=== PATIENT | male | born 1945 | race Caucasian/White ===

== ENCOUNTER 2018-07-17 13:55 | Emergency (ER) | payer OTHER, BC ==
[2018-07-17 14:02] VITALS: PULSE 101; TEMP 98; BMI 28.1
--- NOTE | 2018-07-17 14:02 | PDOC ---
History of Present Illness - History of Present Illness Initial Comments: 07/17/18 14:40 The patient is a 73 year old male with a significant past medical history of HLD and depression who presents to the ER with bilateral lower back pain s/p a fall on 07/07. Patient states he was salsa dancing when he accidentally slipped and fell onto his buttock and his partner fell on top. Patient reports that it feels like spasms and is a 2/10 in severity when sitting down and 9/10 with lying down. Patient denies any difficulty walking. Patient noticed mild relief with hot showers. Patient is also complaining of constipation since the fall and states his stool is hard. The patient denies chest pain, shortness of breath, headache, lightheadedness, and dizziness. Denies fever, chills, nausea, vomit, diarrhea. Denies dysuria, frequency, urgency, and hematuria. Allergies: sulfa Past surgical history: None reported. Social history: No reported alcohol, drug, or cigarette use. PCP: Dr. Stratton <Gissel Pettit - Last Filed: 07/17/18 14:40> - General History Source: Patient Exam Limitations: No Limitations <Dede Laws - Last Filed: 07/17/18 15:41> - General Chief Complaint: Injury Stated Complaint: BACK PAIN S/P SLIP & FALL Time Seen by Provider: 07/17/18 13:58 Past History <Gissel Pettit - Last Filed: 07/17/18 14:40> - Past Medical History Anemia: No Asthma: No Cancer: No Cardiac Disorders: No CVA: No COPD: No CHF: No Dementia: No Diabetes: No GI Disorders: No Disorders: No HTN: No Hypercholesterolemia: Yes Liver Disease: No Seizures: No Thyroid Disease: No - Suicide/Smoking/Psychosocial Hx Smoking History: Former smoker Have you smoked in the past 12 months: No If you are a former smoker, when did you quit?: 20YRS AGO Hx Alcohol Use: Yes (OCC WINE) Drug/Substance Use Hx: Yes Substance Use Type: None Hx Substance Use Treatment: No <Dede Laws - Last Filed: 07/17/18 15:41> - Past Medical History Allergies/Adverse Reactions: Allergies Allergy/AdvReac Type Severity Reaction Status Date / Time Sulfa (Sulfonamide Allergy Mild Rash Verified 07/17/18 13:56 Antibiotics) [Sulfa(Sulfonamide Antibiotics)] Home Medications: Ambulatory Orders Aspirin Coated [Ecotrin -] 81 mg PO DAILY 07/23/12 Multivitamin with Minerals [Multiple Vitamin] 1 each PO DAILY 07/23/12 Rosuvastatin Calcium [Crestor] 5 mg PO HS 07/23/12 Alprazolam [Xanax] 0.5 mg PO ASDIR PRN 07/17/18 Ibuprofen [Motrin -] 400 mg PO TID PRN #21 tablet 07/17/18 Lidocaine 5% Patch [Lidoderm Patch -] 1 patch TP DAILY PRN #30 patch 07/17/18 Methocarbamol [Robaxin -] 500 mg PO TID PRN #30 tablet 07/17/18 Paroxetine HCl [Paxil Cr] 25 mg PO DAILY 07/17/18 Polyethylene Glycol 3350 [Miralax (For Bowel Prep) -] 17 gm PO DAILY PRN #1 bottle 07/17/18 Review of Systems - Review of Systems Able to Perform ROS?: Yes Comments:: 07/17/18 14:41 ADULT ROS GENERAL/CONSTITUTIONAL: No fever or chills. No weakness. HEAD, EYES, EARS, NOSE AND THROAT: No change in vision. No ear pain or discharge. No sore throat. CARDIOVASCULAR: No chest pain or shortness of breath. RESPIRATORY: No cough, wheezing, or hemoptysis. GASTROINTESTINAL: No nausea, vomiting, diarrhea or constipation. GENITOURINARY: No dysuria, frequency, or change in urination. MUSCULOSKELETAL: No joint or muscle swelling or pain. No neck pain. (+) Lower back pain. SKIN: No rash NEUROLOGIC: No headache, vertigo, loss of consciousness, or change in strength/ sensation. ENDOCRINE: No increased thirst. No abnormal weight change. HEMATOLOGIC/LYMPHATIC: No anemia, easy bleeding, or history of blood clots. ALLERGIC/IMMUNOLOGIC: No hives or skin allergy. <Gissel Pettit - Last Filed: 07/17/18 14:40> *Physical Exam - Vital Signs Last Vital Signs Temp Pulse Resp BP Pulse Ox 98 F 101 H 20 150/103 H 96 07/17/18 13:55 07/17/18 13:55 07/17/18 13:55 07/17/18 13:55 07/17/18 13:55 - Physical Exam Comments: 07/17/18 14:41 ADULT PE GENERAL: The patient is in no acute distress. HEAD: Normal with no signs of trauma. EYES: PERRLA, EOMI, sclera anicteric, conjunctiva clear. ENT: Ears normal, nares patent, oropharynx clear without exudates. Moist mucous membranes. NECK: Normal range of motion, supple without lymphadenopathy, JVD, or masses. LUNGS: Breath sounds equal, clear to auscultation bilaterally. No wheezes, and no crackles. HEART:Regular rate and rhythm, normal S1 and S2 without murmur, rub or gallop. ABDOMEN: Soft, nontender, normoactive bowel sounds. No guarding, no rebound. No masses palpable. BACK: (+) Tenderness to the sacrum bilaterally. No bruising or deformities. EXTREMITIES: Normal range of motion, no edema. No clubbing or cyanosis. No erythema, or tenderness. NEUROLOGICAL: Cranial nerves II through XII grossly intact. Normal speech. No focal neurological deficits. MUSCULOSKELETAL: Back non-tender to palpation, no CVA tenderness SKIN: Warm, Dry, normal turgor, no rashes or lesions noted. <Gissel Pettit - Last Filed: 07/17/18 14:40> Medical Decision Making - Medical Decision Making 07/17/18 15:36 Mr Maldonado Presents emergency department status post a fall approximately one week ago. Patient is a ventilatory with a steady gait. Given his pain, he is having difficulty having bowel movements. No fever, no chills. X-rays performed and read by me. Demonstrate no obvious fracture or dislocation. Will discharged home. Patient will be given a prescription for NSAIDs as well as muscle relaxant. Last patient follow up with his primary care physician. Last patient to use on a pillow until feeling better. Impression: Muscular skeletal injury, initial presentation <Dede Laws - Last Filed: 07/17/18 15:41> *DC/Admit/Observation/Transfer - Attestations Scribe Attestion: 07/17/18 14:42 Documentation prepared by Gissel Pettit, acting as medical research assistant for Dede Laws MD. <Gissel Pettit - Last Filed: 07/17/18 14:40> - Discharge Dispostion Decision to Admit order: No <Dede Laws Filed: 07/17/18 15:41> Diagnosis at time of Disposition: Injury of musculoskeletal system - Discharge Dispostion Disposition: HOME Condition at time of disposition: Stable - Referrals Referrals: David Stratton MD [Primary Care Provider] - - Patient Instructions Printed Discharge Instructions: How to Prevent Falls, DI for Musculoskeletal Pain Additional Instructions: Thank you for coming in to the ER today Please be sure to follow up with your primary care physician Take medications as prescribed Return to the ER for worsening symptoms - Post Discharge Activity
[2018-07-17] MEDS ORDERED: IBUPROFEN 400 MG TABLET (FP) PO ONE ×2 (14:30→14:31)
[2018-07-17 16:06] VITALS: BP 148/68
== END 2018-07-17 16:05 | disposition home or self-care (01) ==
LOC: FER 13:55
DX: M79.1 Myalgia (principal); W18.39XA Other fall on same level, initial encounter; Y93.41 Activity, dancing; Y92.9 Unspecified place or not applicable; Z87.891 Personal history of nicotine dependence; E78.5 Hyperlipidemia, unspecified; F32.9 Major depressive disorder, single episode, unspecified
CPT/HCPCS: 72170-TC-FY; 72220-TC-FY; 99284-25

== ENCOUNTER 2018-09-04 14:20 | Emergency (ER) | payer OTHER, BC ==
[2018-09-04 14:43] VITALS: BP 129/79; PULSE 99; TEMP 98.3; BMI 28.1
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
== END 2018-09-04 15:52 | disposition home or self-care (01) ==
LOC: FER 14:20
DX: S06.0X0A Concussion without loss of consciousness, initial encounter (principal); S09.90XA Unspecified injury of head, initial encounter; F41.9 Anxiety disorder, unspecified; E78.00 Pure hypercholesterolemia, unspecified; Z88.2 Allergy status to sulfonamides; Z79.82 Long term (current) use of aspirin; Z87.891 Personal history of nicotine dependence; W50.0XXA Accidental hit or strike by another person, initial encounter; Y93.89 Activity, other specified; Y92.89 Other specified places as the place of occurrence of the external cause
CPT/HCPCS: 70450-TC; 99282-25